=== PATIENT | female | born 1945 | race Caucasian/White ===

== ENCOUNTER 2021-01-03 13:43 | Outpatient (CLI) | payer MEDICARE, BC ==
[~2021-01-03 13:43] MED LIST: ASPI-12 PO; DULO-31 PO; INSU100V30 SQ; LANTUS SQ; LOP25T PO; OMEP-84 PO
== END 2021-01-03 23:59 | disposition home or self-care (01) ==
LOC: RAD 13:43
PROVIDERS: ATTEND Family Medicine
DX: K21.9 Gastro-esophageal reflux disease without esophagitis (principal); R13.14 Dysphagia, pharyngoesophageal phase
CPT/HCPCS: 74230

== ENCOUNTER 2024-11-16 00:45 | Emergency (ER) | payer MEDICARE, BC ==
[~2024-11-16] VITALS: Ht 170.2 cm; Wt 120.0 kg
[~2024-11-16 00:45] MED LIST changes: +APIX5TAB3 PO; -ASPI-12 PO; +ATOR10TA70 PO; +BUPR-122 PO; +DULA1.5P SQ; -DULO-31 PO; +DULO20CA18 PO; -INSU100V30 SQ; +INSU100V64 SQ; +INSU200I4 SQ; -LANTUS SQ; +LEVO25TA7 PO; -LOP25T PO; +LOSA50TA64 PO; -OMEP-84 PO; +SOTA80TA PO; +SOTA80TA73 PO
[2024-11-16 01:01] LABS: BASOPHILS # (AUTO) 0.1 X10'3 (0-0.2); BASOPHILS % (AUTO) 1.5 % (0-1); EOSINOPHILS # (AUTO) 0.3 X10'3 (0-0.9); HEMATOCRIT 37.8 % (35.0-45.0); HEMOGLOBIN 12.9 g/dl (12.0-16.0); LYMPHOCYTES # (AUTO) 1.7 X10'3 (1.1-4.8); LYMPHOCYTES % (AUTO) 26.1 % (21-51); MEAN CORPUSCULAR HEMOGLOBIN 32.8 PG (27.0-31.0); MEAN CORPUSCULAR HGB CONC 34.1 g/dL (33.0-36.5); MEAN PLATELET VOLUME 9.5 FL (7.4-10.4); MONOCYTES % (AUTO) 15.4 % (2-12); NEUTROPHILS # (AUTO) 3.4 X10'3 (1.8-7.7); PLATELET COUNT 145 X10'3 (140-440); RED BLOOD COUNT 3.93 X10'6 (4.20-5.60); WHITE BLOOD COUNT 6.4 X10'3 (4.5-11.0)
[2024-11-16 01:14] LABS: ALANINE AMINOTRANSFERASE 21 U/L (12-78); ALBUMIN 3.3 G/DL (3.4-5.0); ALBUMIN/GLOBULIN RATIO 0.8 (1.1-1.5); ALKALINE PHOSPHATASE 130 IU/L (46-116); ANION GAP 6 (8-16); ASPARTATE AMINO TRANSFERASE 35 U/L (10-37); BILIRUBIN,TOTAL 1.4 MG/DL (0.1-1.0); BLOOD UREA NITROGEN 22 MG/DL (7-18); BUN/CREATININE RATIO 24.7 (10.0-20.0); CALCIUM 9.2 MG/DL (8.5-10.1); CHLORIDE 106 MMOL/L (99-107); CREATININE 0.89 MG/DL (0.40-0.90); GLUCOSE 133 MG/DL (70-104); POTASSIUM 4.2 MMOL/L (3.5-5.1); SODIUM 139 MMOL/L (135-145); TOTAL CARBON DIOXIDE 27.2 MMOL/L (24-32); TOTAL PROTEIN 7.4 G/DL (6.4-8.2); eCRCL 51 ML/MIN; eGFR 61 ML/MIN
[2024-11-16 01:21] LABS: PRO BRAIN NATRIURETIC PEPTIDE 298 PG/ML (0-450)
[2024-11-16 01:25] LABS: TOTAL CELLS COUNTED 100
[2024-11-16] MEDS: albuterol 2.5 MG/3 ML nebule NEB ONE (02:36)
[2024-11-16 04:59] VITALS: BP 158/85; PULSE 75; RESP 15; TEMP 98.2; O2SAT 97
== END 2024-11-16 05:04 | disposition home or self-care (01) ==
LOC: ER 00:46
DX: I48.91 Unspecified atrial fibrillation (principal); E11.9 Type 2 diabetes mellitus without complications; E78.00 Pure hypercholesterolemia, unspecified; I10 Essential (primary) hypertension; Z88.1 Allergy status to other antibiotic agents; Z90.49 Acquired absence of other specified parts of digestive tract; Z79.4 Long term (current) use of insulin; Z79.899 Other long term (current) drug therapy; Z20.822 Contact with and (suspected) exposure to COVID-19
CPT/HCPCS: 36415; 71045; 80053; 83880; 84484; 85007; 85025; 87502; 87503; 87811; 93005; 99285

== ENCOUNTER 2025-06-01 07:38 | Day surgery (SDC) | payer MEDICARE, BC ==
[2025-05-31 13:57] LABS: RED CELL DISTRIBUTION WIDTH 15.9 % (11.5-14.5)
[2025-05-31 13:58] LABS: MEAN PLATELET VOLUME 9.4 FL (7.4-10.4)
[2025-05-31 14:01] LABS: CREATININE 0.71 MG/DL (0.40-0.90); TOTAL CARBON DIOXIDE 24.6 MMOL/L (24-32); eGFR 79 ML/MIN
[2025-05-31 14:04] LABS: APTT 24 SECONDS (22-32); INR 1.1 INR
[~2025-06-01] VITALS: Ht 170.2 cm; Wt 111.0 kg
[2025-06-01] VITALS (15 sets, daily range): BP systolic 123–163; BP diastolic 61–85; PULSE 60–69; RESP 12–21; TEMP 99; O2SAT 93–97
[2025-06-01] MEDS ORDERED: ceFAZolin 2gm/dext,iso 50mL 50 ML IV ONE (07:57)
[2025-06-01] MEDS ORDERED: fentaNYL/PF 50MCG/1 ML 2ML syringe ONE (08:56)
[2025-06-01] MEDS ORDERED: midazolam 1 mg/ML 2ml injection ONE ×2 (08:56→10:07)
[2025-06-01] MEDS ORDERED: LIDOcaine 1% W/epiNEPHrine 1:100,000 20ml vial ONE (08:56)
[2025-06-01] MEDS ORDERED: UBIQ200C3 PO (09:06)
[2025-06-01] MEDS ORDERED: NOVLG SQ (09:06)
[2025-06-01] MEDS ORDERED: VITA-268 PO (09:06)
[2025-06-01] MEDS ORDERED: OMEP10CA5 PO (09:06)
[2025-06-01] MEDS ORDERED: CHOL100046 PO (09:06)
[2025-06-01] MEDS ORDERED: MULT-1085 PO (09:06)
--- NOTE | 2025-06-01 09:21 | ELECTROCARDIOGRAPH REPORT ---
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 SINAN Jones Measurements Intervals [place] Rate: 63 P: 25 CA: 55 QRS: 0 QRSD: 90 T: 8 QT: 469 QTc: 481 Interpretive Statements Sinus rhythm Short CA interval Borderline low voltage, extremity leads Electronically Signed On 06-01-2025 18:02:[address] SINAN Jones Please click the below link to view image of tracing.
[2025-06-01] MEDS ORDERED: HYDROcodone/acetaminophen 5mg/325mg tablet PO PRN (11:55)
[2025-06-01] MEDS ORDERED: HYDROcodone/acetaminophen 10/325mg tab PO PRN (11:55)
[2025-06-01] MEDS: vancomycin/NS 1 GM ADD-VANTAGE 250 ML X 1 DOSE IV ONE (12:26)
--- NOTE | 2025-06-01 12:28 | RADIOLOGY REPORT ---
EXAM: DI CHEST,TWO VIEWS CLINICAL HISTORY: S/P PACEMAKER COMPARISON: DI CHEST,SINGLE VIEW on DOS: 11/16/24, DI CHEST,SINGLE VIEW on DOS: 04/27/23 TECHNIQUE: Frontal and lateral view of the chest was obtained FINDINGS: Lines and Tubes: Cardiac pacemaker projects over left chest wall. Lungs: No focal consolidation. Pleura: No effusion. No pneumothorax. Cardiomediastinal contours: Unremarkable. Atherosclerotic vascular calcifications of the thoracic ao rta are noted. Bones: No acute osseous abnormality. IMPRESSION: No acute cardiopulmonary disease.
[2025-06-01] MEDS: normal saline 1000ml 1,000 ML IV SCH (12:32)
[2025-06-01] MEDS ORDERED: CEPH-585 PO (13:59)
--- NOTE | 2025-06-02 08:42 | CARDIOLOGY REPORT ---
DATE OF SERVICE: 06/01/2025 DICTATING PHYSICIAN: SINAN Jones MD PERMANENT PACEMAKER IMPLANTATION REPORT GENDER: Female. AGE: 80. HEIGHT: 170 cm. WEIGHT: 111 kg. BODY SURFACE AREA: 2.2 m2 INDICATION: The patient is a 80-year-old postmenopausal female with diabetes, hypertension, hyperlipidemia, sleep apnea, paroxysmal atrial fibrillation, sick sinus syndrome with symptomatic tachy and dulce episodes. The patient also has episodes of SVT. The patient had event monitor on 01/2025 with lowest heart rate of 39 with 52 episodes of SVT. The patient also has history of sick sinus syndrome.. After discussing risks, benefits, and alternative options. the patient in view of her progressive symptoms, exertional fatigue, tiredness, instability, and dizziness, would like to proceed with permanent pacemaker implantation. Risks, benefits, and alternative options were discussed and informed consent was obtained. PROCEDURE TECHNIQUE: Left infraclavicular area was prepped and draped in the usual fashion. Two separate accesses were obtained in the left subclavian vein with micropuncture technique and 2 micropuncture wires were replaced with 2 J-wires. A horizontal incision was placed in the left infraclavicular area. Using blunt dissection and electrocautery, prepectoral subcutaneous pacemaker pocket was fashioned. External ends of the J-wires were retrieved into the pacemaker pocket. Two 7-Stateless sheaths were advanced over the J-wires. Through one of them, RV lead was advanced to the RV apex, screwed into the RV apex. Appropriate pacing and sensing thresholds obtained. Through the second 7-Stateless, right atrial lead was advanced to the right atrium, J-wire was formed, screwed into the right atrial appendage. Sheath removed by peel-away technique. Pocket irrigated with copious antibiotic solution. pocket closed with interrupted #0 Vicryl. Skin approximated with juan. Pressure dressing applied. TECHNICAL INFORMATION: Device used Tintriure MRI compatible PPM and model #W3DR01, serial #[id number] [employer], left pectoral location. RIGHT ATRIAL LEAD: Model number 4076, 52 cm long, serial number [id number] 06/01/2025, right atrial appendage, P-wave amplitude of millivolts and ohms of impedance, pacing threshold of 1.5 volts at 0.4 milliseconds. RV LEAD: Model number 5076, 58 cm long, serial number [id number], [employer], 06/01/2025, RV apex. R-wave amplitude of 4.4 millivolts at ohms of impedance, pacing threshold volts at 0.5 milliseconds. IMPRESSION: A 80-year-old female with sick sinus syndrome with symptomatic tachy and dulce episodes who underwent successful pacemaker placement with no complications. SINAN Jones MD TID: [id number] RECEIPT: [id number] BC/JAMES/AMI Cc: Myra cantor, , PMD MTDD
== END 2025-06-01 17:00 | disposition home or self-care (01) ==
LOC: SSTAY O 07:38
PROVIDERS: ATTEND Internal Medicine Cardiovascular Disease
DX: I49.5 Sick sinus syndrome (principal); G47.30 Sleep apnea, unspecified; E78.5 Hyperlipidemia, unspecified; E11.9 Type 2 diabetes mellitus without complications; I10 Essential (primary) hypertension; Z78.0 Asymptomatic menopausal state; I48.0 Paroxysmal atrial fibrillation; I47.10 Supraventricular tachycardia, unspecified; Z95.0 Presence of cardiac pacemaker; Z79.899 Other long term (current) drug therapy; Z98.890 Other specified postprocedural states; Z82.49 Family history of ischemic heart disease and other diseases of the circulatory system
CPT/HCPCS: 33208; 36415; 71046; 80048; 82948; 85025; 85610; 85730; 93005; A4565; A6402; C1785; C1898; J0690; J1200; J2250; J3010; J3373; J3490; J7030; Z7610; 99152; 99153; A6449